=== PATIENT | female | born 1975 | race Caucasian/White ===

== ENCOUNTER 2017-10-11 07:09 | Day surgery (SDC) | END 2017-10-11 09:40 | disposition home or self-care (01) ==

== ENCOUNTER 2017-10-11 12:30 | Inpatient (IN) | END 2017-10-16 12:30 | disposition home or self-care (01) | DRG 812 ==

== ENCOUNTER 2017-11-07 10:46 | Day surgery (SDC) | END 2017-11-07 14:59 | disposition home or self-care (01) ==

== ENCOUNTER 2018-07-02 18:18 | Emergency (ER) | payer MEDICAID, OTHER ==
[~2018-07-02] VITALS: Ht 147.3 cm; Wt 74.1 kg
[~2018-07-02 18:18] MED LIST: FER325 PO
[2018-07-02 18:27] VITALS: Ht 147.3 cm; Wt 74.1 kg
[2018-07-02] MEDS ORDERED: KETOROLAC 15 MG INJ IV STA (21:52)
[2018-07-02] MEDS ORDERED: SOD CHLORIDE 0.9% 1,000 ML IV STA (21:52)
[2018-07-02] MEDS ORDERED: ONDANSETRON 4 MG INJ IV STA (21:52)
--- NOTE | 2018-07-02 22:00 | ERD ---
ER Documentation Chief Complaint Chief Complaint abdominal pain x 3 days HPI 42-year-old woman complaining of periumbilical pain times 3 days similar to previous episodes. Patient states she has a umbilical hernia and has had recurr ent similar pain times 7 years. She states she has had some nausea as well but denies vomiting or diarrhea, no weight loss, no fevers or chills, no chest pain or shortness of breath. ROS All systems reviewed and are negative except as per history of present illness. Medications Home Meds Active Scripts Naproxen* (Naprosyn*) 500 Mg Tablet, 500 MG PO BID PRN for PAIN AND/OR INFLAMMATION, #30 TAB Prov:RANJIT FRANK MD 07/02/18 Ferrous Sulfate* (Ferrous Sulfate*) 325 Mg Tabec, 325 MG PO BID, #60 TAB 2 Refills Prov:RANJIT MORALES 10/15/17 Allergies Allergies: Coded Allergies: No Known Allergy (Verified , 11/07/17) PMhx/Soc Obesity, periumbilical hernia Medical and Surgical Hx: pt denies Medical Hx, pt denies Surgical Hx Anesthesia Reaction: No Hx Neurological Disorder: No Hx Respiratory Disorders: No Hx Cardiac Disorders: No Hx Psychiatric Problems: No Hx Miscellaneous Medical Probl: Yes (ANEMIA WITH BLOOD TRANSFUSION) Hx Alcohol Use: No Hx Substance Use: No Hx Tobacco Use: No Smoking Status: Never smoker FmHx Family History: No diabetes Physical Exam Vitals Vital Signs Date Temp Pulse Resp B/P (MAP) Pulse Ox O2 O2 Flow FiO2 Time Delivery Rate 07/02/18 98.4 64 16 120/107 100 Room Air 21:48 (111) 07/02/18 97.6 67 18 121/65 100 18:27 (83) Physical Exam GENERAL: Well-developed, well-nourished, well-hydrated, in no apparent distress, looks nontoxic in appearance HEENT: Moist mucous membranes, pink conjunctiva, no cervical spine tenderness or step-off deformities, no goiter, no jaundice or icterus, extraocular movements intact without pain. No submandibular induration, and no pharyngeal erythema NEURO: Alert and oriented 3, cranial nerves II through XII intact bilaterally, pupils equal round reactive to light, no focal deficits or facial asymmetry, sensation intact distally Strength 5/5 in upper and lower extremities bilaterally CARDIAC: Regular rate and rhythm, no murmurs rubs or gallops LUNGS: Clear bilaterally no wheezing crackles or stridor ABDOMEN: Soft nontender, no guarding, no rigidity, no rebound, no psoas sign no obturator sign. There is a small soft reducible umbilical hernia noted on my examination which was reduced with little effort SKIN: Warm and dry to touch, no abrasions, contusions, or hematomas, no lacerations, no ecchymosis, no target lesions, and without ulcers EXTREMITIES: No clubbing cyanosis or edema, calves are bilaterally symmetrical, no Homans sign, no popliteal cord sign. Distal pulses equal and bilateral PSYCH: Normal affect without agitation or irritability Result Diagram: 07/02/18220307/02/182203 Results 24 hrs Laboratory Tests Test 07/02/18 22:03 07/02/18 22:04 07/02/18 22:13 07/02/18 22:14 Urine Color YELLOW Urine Clarity CLEAR Urine pH 6.0 Urine Specific 1.012 [place] Urine Ketones NEGATIVE mg/dL Urine Nitrite NEGATIVE mg/dL Urine Bilirubin NEGATIVE mg/dL Urine NEGATIVE mg/dL Urobilinogen Urine Leukocyte NEGATIVE Neal/ul Esterase Urine Hemoglobin NEGATIVE mg/dL Urine Glucose NEGATIVE mg/dL Urine Total NEGATIVE mg/dl Protein White Blood Count 11.2 10^3/ul Red Blood Count 4.64 10^6/ul Hemoglobin 12.6 g/dl Hematocrit 37.3 % Mean Corpuscular 80.4 fl Volume Mean Corpuscular 27.2 pg Hemoglobin Mean Corpuscular 33.8 g/dl Hemoglobin Concen t Red Cell 14.3 % Distribution Width Platelet Count 185 10^3/UL Mean Platelet 9.5 fl Volume Immature 0.300 % Granulocytes % Neutrophils % 74.0 % Lymphocytes % 20.2 % Monocytes % 4.3 % Eosinophils % 0.8 % Basophils % 0.4 % Nucleated Red 0.0 /100WBC Blood Cells % Immature 0.030 10^3/ul Granulocytes # Neutrophils # 8.3 10^3/ul Lymphocytes # 2.3 10^3/ul Monocytes # 0.5 10^3/ul Eosinophils # 0.1 10^3/ul Basophils # 0.1 10^3/ul Nucleated Red 0.0 10^3/ul Blood Cells # Sodium Level 143 mmol/L Potassium Level 3.7 mmol/L Chloride Level 106 mmol/L Carbon Dioxide 23 mmol/L Level Anion Gap 14 Blood Urea 10 mg/dl Nitrogen Creatinine 0.54 mg/dl Est Glomerular > 60 mL/min Filtrat Rate mL/min Glucose Level 95 mg/dl Calcium Level 9.3 mg/dl Total Bilirubin 0.4 mg/dl Direct Bilirubin 0.00 mg/dl Indirect 0.4 mg/dl Bilirubin Aspartate Amino 24 IU/L Transf (AST/SGOT) Alanine 28 IU/L Aminotransferase (ALT/SGPT) Alkaline 89 IU/L Phosphatase Total Protein 8.1 g/dl Albumin 4.3 g/dl Globulin 3.80 g/dl Albumin/Globulin 1.13 Ratio Lipase 45 U/L Bedside Urine pH 6.0 (LAB) Bedside Urine Negative Protein (LAB) Bedside Urine Negative Glucose (UA) Bedside Urine Negative Ketones (LAB) Bedside Urine Negative Blood Bedside Urine Negative Nitrite (LAB) Bedside Urine Negative Leukocyte Esteras e (L POC Beta HCG, NEGATIVE Qualitative Current Medications Medications Dose Sig/Rosa Start Time Status Last (Trade) Ordered Route PRN Stop Time Admin Dose Reason Admin Sodium 1,000 ml @ Q1H STAT 07/02/18 DC 07/02/18 Chloride 1,000 mls/hr IV 21:52 22:16 07/02/18 22:51 Ondansetron 4 mg ONCE STAT 07/02/18 DC 07/02/18 HCl (Zofran IV 21:52 22:16 Inj) 07/02/18 21:57 Ketorolac 15 mg ONCE STAT 07/02/18 DC 07/02/18 Tromethamine IV 21:52 22:24 (Toradol) 07/02/18 21:57 Procedures/MDM IV line was established patient was placed on rn cardiac rhythm strip revealed a sinus rhythm at about 80 bpm with upright P and T waves. Patient was afebrile I administered 1 L normal saline IV, Zofran 4 mg IV, Toradol 15 mg IV x1. CBC and electrolytes were normal, liver function tests were normal, urinalysis was negative for infection. I repeated patient's abdominal exam and remains benign, she has no guarding, rigidity, masses, or tenderness. Differential diagnoses considered, included but not limited to acute coronary syndrome, pulmonary embolism, aortic dissection, abdominal aortic aneurysm, sepsis, stroke, meningitis, encephalitis, pneumonia, appendicitis, cholecystiti s, bowel obstruction, pyelonephritis, nephrolithiasis, cystitis, as well as metabolic, hematologic, and electrolyte abnormalities. As well as abscess, cellulitis, fractures, and dislocations. Patient feels much better at this time, and vital signs are normal, symptoms have improved. I did give strict instructions to return to the ED if symptoms continue or worsen, patient will otherwise follow-up with primary care physician. Patient understood instructions and agreed to plan. Disclaimer: Inadvertent spelling and grammatical errors are likely due to EHR/dictation software use and do not reflect on the overall quality of patient care. Also, please note that the electronic time recorded on this note does not necessarily reflect the actual time of the patient encounter. Departure Diagnosis: Primary Impression: Umbilical hernia Obstruction and gangrene presence: without obstruction or gangrene Q ualified Codes: K42.9 - Umbilical hernia without obstruction or gangrene Condition: RANJIT Zee MD Jul 02, 2018 21:59
[2018-07-02] MEDS ORDERED: NAPR-985 PO (23:04)
[2018-07-02 23:20] VITALS: BP 126/75; PULSE 68; RESP 18
== END 2018-07-02 23:24 | disposition home or self-care (01) ==
LOC: E/R 18:18
DX: K42.9 Umbilical hernia without obstruction or gangrene (principal)
CPT/HCPCS: 36415; 80053; 81003; 81025; 83690; 85025; 96374; 96375; J1885; J2405; J7030; Z7502